=== PATIENT | male | born 1990 | race Caucasian/White ===

== ENCOUNTER → 2018-05-15 12:18 | Outpatient (CLI) | payer OTHER, SELFPAY ==
[2018-05-15 13:44] LABS: Add Manual Diff / Slide Review NO; Basophils Percent Auto 0.4 % (0-2); Hematocrit 47.7 % (41-53); Hemoglobin 16.3 g/dL (13.5-17.5); Lymphocytes Percent Auto 33.4 % (25-40); Mean Corpuscular HGB Conc 34.1 % (30-36); Mean Corpuscular Hemoglobin 30.3 PG (26-34); Mean Corpuscular Volume 88.8 fL (80-100); Monocytes Percent Auto 7.3 % (3-14); Neutrophils Absolute Auto 4300 /uL (3000-5900); Neutrophils Percent Auto 55.9 % (50-75); Platelet Count 237 X10^3/uL (150-400); Red Blood Cell Count 5.38 X10^6/uL (4.5-5.9); Red Cell Distribution Width 12.7 % (11.6-14.8); White Blood Cell Count 7.6 X10^3/uL (4.5-11.0)
[2018-05-15 14:05] LABS: Alanine Aminotransferase 35 IU/L (21-72); Albumin 4.5 g/dL (3.5-5.0); Albumin Globulin Ratio 1.5 (1.0-2.8); Alkaline Phosphatase 49 U/L (38-126); Aspartate Aminotransferase 27 IU/L (17-59); BUN Creatinine Ratio 16.3 (6-22); Bilirubin Total 1.7 mg/dL (0.2-1.3); Blood Urea Nitrogen 13 mg/dL (9-20); Carbon Dioxide 30 mmol/L (22-32); Chloride 102 mmol/L (98-107); Estimated Glomerular Filt Rate > 60.0 mL/min (>60); Glucose 85 mg/dL (70-100); HEMOLYSIS < 15 (0-50); Potassium 4.2 mmol/L (3.4-5.1); Sodium 141 mmol/L (137-145); Total Protein 7.5 g/dL (6.3-8.2)
[2018-05-15 14:37] LABS: Thyroid Stimulating Hormone 1.29 uIU/mL (0.47-4.68)
[2018-05-15 17:07] LABS: Hep C Virus Ab w/Reflex Quant NEGATIVE s/c (NEGATIVE)
== END ==
PROVIDERS: PCP Family Medicine; Visit Provider Physician Assistant
DX: L43.8 Other lichen planus (principal)
CPT/HCPCS: 36415; 80053; 84443; 85025; 86803

== ENCOUNTER 2018-06-17 12:36 | Emergency (ER) | payer OTHER, SELFPAY ==
--- NOTE | 2018-06-17 12:40 | DI.RAD.S_ITS ---
PROCEDURE: XR HAND RT MIN 3V INDICATIONS: right hand pain after impacting a wall TECHNIQUE: 3 views of the hand(s) acquired. COMPARISON: [facility], BILLY, FINGERS 3VW (RT), 01/27/2014, 2:56 PM. [facility], BILLY, XR WRIST RT MIN 3V, 06/17/2018, 12:18. FINDINGS: Bones: In this patient with the given history, scrutiny is given to the 5th metacarpal. No fractures are seen at this site. No fractures or dislocations are seen elsewhere. Carpal bones are normally aligned. No suspicious bony lesions. Soft tissues: No suspicious soft tissue calcifications. IMPRESSION: No fractures are seen by plain film. If there is focal tenderness, or other clinical concern for a fracture not seen on these images in this patient with a given history of trauma, please consider a dedicated CT or a short-term followup plain film series (in 1-2 weeks) for further evaluation. Dictated by: Danial Barahona M.D. on 06/17/2018 at 13:06 Approved by: Danial Barahona M.D. on 06/17/2018 at 13:07
--- NOTE | 2018-06-17 12:41 | DI.RAD.S_ITS ---
PROCEDURE: XR WRIST RT MIN 3V INDICATIONS: right wrist pain after impacting a wall TECHNIQUE: 4 views of the wrist were acquired. COMPARISON: [facility], BILLY, XR HAND RT MIN 3V, [facility]2018, 12:18[facility], 2:56 PM. FINDINGS: Bones: No fractures or dislocations. No suspicious bony lesions. Scaphoid view: No navicular fractures are seen. Soft tissues: No suspicious soft tissue calcifications. IMPRESSION: No displaced fractures are seen. If there is snuffbox tenderness (or other clinical suspicion for a fracture not seen on these images) then a repeat examination would be recommended in 10 to 14 days, following splinting. Dictated by: Danial Barahona M.D. on 06/17/2018 at 13:07 Approved by: Danial Barahona M.D. on 06/17/2018 at 13:08
[2018-06-17 12:44] VITALS: BP 116/74; PULSE 99; RESP 15; TEMP 36.4; O2SAT 96; BMI 29.9
--- NOTE | 2018-06-17 13:08 | ED.UPPEXIN ---
HPI - Extremity Injury (Upper) <SHAN Haines - Last Filed: 06/17/18 21:43> General Chief Complaint: Extremity Injury, Upper Stated Complaint: 'hand is broken' Time Seen by Provider: 06/17/18 13:34 Source: patient Mode of arrival: ambulatory Limitations: no limitations History of Present Illness HPI narrative: 27-year-old healthy male nonsmoker here for complaint of pain to his right hand and wrist after hitting a wall last night. He states pain is mostly over the MCP joint of the 5th digit. Pain radiates to the right ulnar aspect of the wrist. Increased pain with palpation and movement of the area. He reports having some slight swelling. He denies any other injuries or concerns. Related Data Home Medications Medication Instructions Recorded Confirmed prednisone 40 mg PO DAILY 06/17/18 06/17/18 Allergies Allergy/AdvReac Type Severity Reaction Status Date / Time No Known Drug Allergies Allergy Verified 06/17/18 12:44 Review of Systems <SHAN Haines - Last Filed: 06/17/18 21:43> Constitutional Denies chills, Denies fever(s), Denies lethargy and Denies weakness Eyes Denies change in vision, Denies eye discharge, Denies irritation and Denies loss of vision ENT Ears, Nose, Mouth, and Throat: Denies change in voice, Denies neck pain and Denies sore throat Cardiovascular Denies chest pain, Denies irregular heart rhythm, Denies lightheadedness, Denies palpitations, Denies dyspnea, Denies dyspnea on exertion and Denies orthopnea Respiratory Denies cough, Denies dyspnea, Denies dyspnea on exertion and Denies wheezing Gastrointestinal Gastrointestinal: Denies abdominal pain, Denies change in bowel habits, Denies diarrhea, Denies nausea and Denies vomiting Genitourinary Denies hematuria, Denies flank pain, Denies urinary incontinence and Denies urinary urgency Musculoskeletal Denies neck pain Comments: Right wrist and hand pain Integumentary/Breasts Denies pruritus, Denies erythema, Denies rash and Denies wounds Neurologic Denies confusion, Denies loss of vision and Denies weakness Psychiatric Denies anxiety, Denies confusion, Denies depression, Denies homicidal ideation and Denies suicidal ideation Endocrine Denies palpitations Hematologic/Lymphatic Denies easy bruising Allergic/Immunologic Denies wheezing Exam <SHAN Haines - Last Filed: 06/17/18 21:43> Initial Vital Signs Initial Vital Signs: Vital Signs Temperature 97.6 F 06/17/18 12:44 Pulse Rate 99 H 06/17/18 12:44 Respiratory Rate 15 06/17/18 12:44 Blood Pressure 116/74 06/17/18 12:44 Pulse Oximetry 96 06/17/18 12:44 Const General: cooperative and well developed Nutritional Appearance: well nourished Orientation: alert, awake, oriented x3 and not confused HENMI Mouth: oral mucosae normal and oropharynx normal Eyes Conjunctivae: conjunctivae normal Sclera: sclerae normal Pupils: PERRL EOM: EOM intact bilaterally Resp Effort & Inspection: normal respiratory effort, able to speak in complete sentences, no respiratory distress and no use of accessory muscles Auscultation: clear to auscultation bilaterally, no rales, no rhonchi and no wheezes Cardio Rate: regular rate Rhythm: regular rhythm Heart Sounds: no click, no gallops, no murmurs and no rubs Pulses: normal peripheral pulses Skin General: no rashes or lesions noted, No jaundice and No petechiae Neuro General: alert, oriented x3, gait normal and no focal motor deficits Speech: speech normal Extrem Other: Right hand with superficial abrasions to the MCPs of the 4th and 5th metacarpals. Slight swelling to the area. Slight ecchymosis. No deformities. Full range of motion. Distal sensation is intact. Distal cap refill less than 2 sec. No snuffbox tenderness. <Ej Sotelo DO - Last Filed: 06/20/18 08:43> Initial Vital Signs Initial Vital Signs: Vital Signs Temperature 97.6 F 06/17/18 12:44 Pulse Rate 99 H 06/17/18 12:44 Respiratory Rate 15 06/17/18 12:44 Blood Pressure 116/74 06/17/18 12:44 Pulse Oximetry 96 06/17/18 12:44 Course <SHAN Haines - Last Filed: 06/17/18 21:43> Orders Ordered: Discontinued Medications Ibuprofen (Advil) 800 mg PO NOW ONE Stop: 06/17/18 13:20 Last Admin: 06/17/18 13:24 Dose: 800 mg Vital Signs - 8 hr 06/17/18 13:44 Pulse Rate 95 H Respiratory Rate 16 Blood Pressure 128/83 Pulse Oximetry 97 <Ej Sotelo DO - Last Filed: 06/20/18 08:43> Orders Ordered: Discontinued Medications Ibuprofen (Advil) 800 mg PO NOW ONE Stop: 06/17/18 13:20 Last Admin: 06/17/18 13:24 Dose: 800 mg Vital Signs - 8 hr 06/17/18 13:44 Pulse Rate 95 H Respiratory Rate 16 Blood Pressure 128/83 Pulse Oximetry 97 MDM - Extremity Injury (Upper) <SHAN Haines - Last Filed: 06/17/18 21:43> Imaging Data Right wrist: Radiologist's impression: [address] [address] XRay Report Signed Patient: Trevor Joyner RMR#: [id number] : 1990Acct:[id number] Age/Sex: 27 / MDate of Service: 06/17/18 Loc: ED Accession Number: [id number] Procedure: XR wrist RT min 3V Ordering Provider: Jatin Candelario PROCEDURE: XR WRIST RT MIN 3V INDICATIONS: right wrist pain after impacting a wall TECHNIQUE: 4 views of the wrist were acquired. [facility] 01[facility]/2014, 2:56 PM. FINDINGS: Bones: No fractures or dislocations. No suspicious bony lesions. Scaphoid view: No navicular fractures are seen. Soft tissues: No suspicious soft tissue calcifications. IMPRESSION: No displaced fractures are seen. If there is snuffbox tenderness (or other clinical suspicion for a fracture not seen on these images) then a repeat examination would be recommended in 10 to 14 days, following splinting. Dictated by: Danial Barahona M.D. on 06/17/2018 at 13:07 Approved by: Danial Barahona M.D. on 06/17/2018 at 13:08 Right hand : Radiologist's impression: [address] [place] [id number] XRay Report Signed Patient: Trevor Joyner RMR#: [id number] : 1990Acct:[id number] Age/Sex: 27 / MDate of Service: 06/17/18 Loc: ED Accession Number: [id number] Procedure: XR hand RT min 3V Ordering Provider: Jatin Candelario PROCEDURE: XR HAND RT MIN 3V INDICATIONS: right hand pain after impacting a wall TECHNIQUE: 3 views of the hand(s) acquired. COMPARISON: [facility], CR, FINGERS 3VW (RT), 01/27/2014, 2:56 PM. [facility], , XR WRIST RT MIN 3V, 06/17/2018, 12:18. FINDINGS: Bones: In this patient with the given history, scrutiny is given to the 5th metacarpal. No fractures are seen at this site. No fractures or dislocations are seen elsewhere. Carpal bones are normally aligned. No suspicious bony lesions. Soft tissues: No suspicious soft tissue calcifications. IMPRESSION: No fractures are seen by plain film. If there is focal tenderness, or other clinical concern for a fracture not seen on these images in this patient with a given history of trauma, please consider a dedicated CT or a short-term followup plain film series (in 1-2 weeks) for further evaluation. Dictated by: Danial Barahona M.D. on 06/17/2018 at 13:06 Approved by: Danial Barahona M.D. on 06/17/2018 at 13:07 [facility] Narrative Medical decision making narrative: X-ray the right wrist and right hand were obtained and were negative for any acute fractures. Signs and symptoms presents as contusion to the right hand and right wrist. [id number] Tylenol or Motrin as needed for any discomfort. Ice and elevation help with any swelling. Follow up with primary care provider in 1 week for re-evaluation. If continued pain recommend repeat films to rule out occult fracture. For any worsening symptoms return to the emergency room. Discharge Plan Departure Patient Disposition: Home Clinical Impression: Contusion of hand, right Discharge Date/Time: 06/17/18 13:45 Interventions: ED Discharge Assessment Last Done: 06/17/18 13:44 Instructions: Contusion Activity Restrictions/Additional Instructions: X-rays of the right wrist and right hand were obtained and were negative for fracture. Signs and symptoms presents as contusion to the right hand/wrist. Use [id number] ibuprofen as needed for any discomfort. Ice and elevation help with any swelling follow up with her primary care provider in 1 week for re-evaluation and if still painful recommend repeat films to rule out occult fracture. For any worsening symptoms return to the emergency room. Prescriptions: No Action prednisone 20 mg tablet 40 mg PO DAILY RF: 0 Referrals: Rosenda Jean MD [Primary Care Provider] - <Ej Sotelo DO - Last Filed: 06/20/18 08:43> Cosign ED Attending Ercikature Attestation: I was immediately available in the department for consultation. Documentation has been reviewed. I agree with assessment and plan.
[2018-06-17] MEDS: IBUPROFEN 400 MG TABLET 800 MG PO (13:24)
--- NOTE | 2018-06-17 13:32 | ED_ITS ---
HPI - Extremity Injury (Upper) <SHAN Haines - Last Filed: 06/17/18 21:43> General Chief Complaint: Extremity Injury, Upper Stated Complaint: 'hand is broken' Time Seen by Provider: 06/17/18 13:34 Source: patient Mode of arrival: ambulatory Limitations: no limitations History of Present Illness HPI narrative: 27-year-old healthy male nonsmoker here for complaint of pain to his right hand and wrist after hitting a wall last night. He states pain is mostly over the MCP joint of the 5th digit. Pain radiates to the right ulnar aspect of the wrist. Increased pain with palpation and movement of the area. He reports having some slight swelling. He denies any other injuries or concerns. Related Data Home Medications Medication Instructions Recorded Confirmed prednisone 40 mg PO DAILY 06/17/18 06/17/18 Allergies Allergy/AdvReac Type Severity Reaction Status Date / Time No Known Drug Allergies Allergy Verified 06/17/18 12:44 Review of Systems <SHAN Haines - Last Filed: 06/17/18 21:43> Constitutional Denies chills, Denies fever(s), Denies lethargy and Denies weakness Eyes Denies change in vision, Denies eye discharge, Denies irritation and Denies loss of vision ENT Ears, Nose, Mouth, and Throat: Denies change in voice, Denies neck pain and Denies sore throat Cardiovascular Denies chest pain, Denies irregular heart rhythm, Denies lightheadedness, Denies palpitations, Denies dyspnea, Denies dyspnea on exertion and Denies orthopnea Respiratory Denies cough, Denies dyspnea, Denies dyspnea on exertion and Denies wheezing Gastrointestinal Gastrointestinal: Denies abdominal pain, Denies change in bowel habits, Denies diarrhea, Denies nausea and Denies vomiting Genitourinary Denies hematuria, Denies flank pain, Denies urinary incontinence and Denies urinary urgency Musculoskeletal Denies neck pain Comments: Right wrist and hand pain Integumentary/Breasts Denies pruritus, Denies erythema, Denies rash and Denies wounds Neurologic Denies confusion, Denies loss of vision and Denies weakness Psychiatric Denies anxiety, Denies confusion, Denies depression, Denies homicidal ideation and Denies suicidal ideation Endocrine Denies palpitations Hematologic/Lymphatic Denies easy bruising Allergic/Immunologic Denies wheezing Exam <SHAN Haines - Last Filed: 06/17/18 21:43> Initial Vital Signs Initial Vital Signs: Vital Signs Temperature 97.6 F 06/17/18 12:44 Pulse Rate 99 H 06/17/18 12:44 Respiratory Rate 15 06/17/18 12:44 Blood Pressure 116/74 06/17/18 12:44 Pulse Oximetry 96 06/17/18 12:44 Const General: cooperative and well developed Nutritional Appearance: well nourished Orientation: alert, awake, oriented x3 and not confused HENME Mouth: oral mucosae normal and oropharynx normal Eyes Conjunctivae: conjunctivae normal Sclera: sclerae normal Pupils: PERRL EOM: EOM intact bilaterally Resp Effort & Inspection: normal respiratory effort, able to speak in complete sentences, no respiratory distress and no use of accessory muscles Auscultation: clear to auscultation bilaterally, no rales, no rhonchi and no wheezes Cardio Rate: regular rate Rhythm: regular rhythm Heart Sounds: no click, no gallops, no murmurs and no rubs Pulses: normal peripheral pulses Skin General: no rashes or lesions noted, No jaundice and No petechiae Neuro General: alert, oriented x3, gait normal and no focal motor deficits Speech: speech normal Extrem Other: Right hand with superficial abrasions to the MCPs of the 4th and 5th metacarpals. Slight swelling to the area. Slight ecchymosis. No deformities. Full range of motion. Distal sensation is intact. Distal cap refill less than 2 sec. No snuffbox tenderness. <Ej Sotelo DO - Last Filed: 06/20/18 08:43> Initial Vital Signs Initial Vital Signs: Vital Signs Temperature 97.6 F 06/17/18 12:44 Pulse Rate 99 H 06/17/18 12:44 Respiratory Rate 15 06/17/18 12:44 Blood Pressure 116/74 06/17/18 12:44 Pulse Oximetry 96 06/17/18 12:44 Course <SHAN Haines - Last Filed: 06/17/18 21:43> Orders Ordered: Discontinued Medications Ibuprofen (Advil) 800 mg PO NOW ONE Stop: 06/17/18 13:20 Last Admin: 06/17/18 13:24 Dose: 800 mg Vital Signs - 8 hr 06/17/18 13:44 Pulse Rate 95 H Respiratory Rate 16 Blood Pressure 128/83 Pulse Oximetry 97 <Ej Sotelo DO - Last Filed: 06/20/18 08:43> Orders Ordered: Discontinued Medications Ibuprofen (Advil) 800 mg PO NOW ONE Stop: 06/17/18 13:20 Last Admin: 06/17/18 13:24 Dose: 800 mg Vital Signs - 8 hr 06/17/18 13:44 Pulse Rate 95 H Respiratory Rate 16 Blood Pressure 128/83 Pulse Oximetry 97 MDM - Extremity Injury (Upper) <SHAN Haines - Last Filed: 06/17/18 21:43> Imaging Data Right wrist: Radiologist's impression: [address] [address] XRay Report Signed Patient: Trevor Joyner RMR#: [id number] : 1990Acct:[id number] Age/Sex: 27 / MDate of Service: 06/17/18 Loc: ED Accession Number: [id number] Procedure: XR wrist RT min 3V Ordering Provider: Jatin Candelario PROCEDURE: XR WRIST RT MIN 3V INDICATIONS: right wrist pain after impacting a wall TECHNIQUE: 4 views of the wrist were acquired. [facility]2014, 2:56 PM. FINDINGS: Bones: No fractures or dislocations. No suspicious bony lesions. Scaphoid view: No navicular fractures are seen. Soft tissues: No suspicious soft tissue calcifications. IMPRESSION: No displaced fractures are seen. If there is snuffbox tenderness (or other clinical suspicion for a fracture not seen on these images) then a repeat examination would be recommended in 10 to 14 days, following splinting. Dictated by: Dainal Barahona M.D. on 06/17/2018 at 13:07 Approved by: Danial aBrahona M.D. on 06/17/2018 at 13:08 Right hand : Radiologist's impression: [address] [place] [id number] XRay Report Signed Patient: Trevor Joyner RMR#: [id number] : 1990Acct:[id number] Age/Sex: 27 / MDate of Service: 06/17/18 Loc: ED Accession Number: [id number] Procedure: XR hand RT min 3V Ordering Provider: Jatin Candelario PROCEDURE: XR HAND RT MIN 3V INDICATIONS: right hand pain after impacting a wall TECHNIQUE: 3 views of the hand(s) acquired. COMPARISON: [facility], CR, FINGERS 3VW (RT), 01/27/2014, 2:[address] [facility], , XR WRIST RT MIN 3V, 06/17/2018, 12:18. FINDINGS: Bones: In this patient with the given history, scrutiny is given to the 5th metacarpal. No fractures are seen at this site. No fractures or dislocations are seen elsewhere. Carpal bones are normally aligned. No suspicious bony lesions. Soft tissues: No suspicious soft tissue calcifications. IMPRESSION: No fractures are seen by plain film. If there is focal tenderness, or other clinical concern for a fracture not seen on these images in this patient with a given history of trauma, please consider a dedicated CT or a short-term followup plain film series (in 1-2 weeks) for further evaluation. Dictated by: Danial Barahona M.D. on 06/17/2018 at 13:06 Approved by: Danial Barahona M.D. on 06/17/2018 at 13:07 [facility] Narrative Medical decision making narrative: X-ray the right wrist and right hand were obtained and were negative for any acute fractures. Signs and symptoms presents as contusion to the right hand and right wrist. Waer-bjr-eptgkel Tylenol or Motrin as needed for any discomfort. Ice and elevation help with any swelling. Follow up with primary care provider in 1 week for re- evaluation. If continued pain recommend repeat films to rule out occult fracture. For any worsening symptoms return to the emergency room. Discharge Plan Departure Patient Disposition: Home Clinical Impression: Contusion of hand, right Discharge Date/Time: 06/17/18 13:45 Interventions: ED Discharge Assessment Last Done: 06/17/18 13:44 Instructions: Contusion Activity Restrictions/Additional Instructions: X-rays of the right wrist and right hand were obtained and were negative for fracture. Signs and symptoms presents as contusion to the right hand/wrist. Use xjlt-hud-ofitrge ibuprofen as needed for any discomfort. Ice and elevation help with any swelling follow up with her primary care provider in 1 week for re-evaluation and if still painful recommend repeat films to rule out occult fracture. For any worsening symptoms return to the emergency room. Prescriptions: No Action prednisone 20 mg tablet 40 mg PO DAILY RF: 0 Referrals: Rosenda Jean MD [Primary Care Provider] - <Ej Sotelo DO - Last Filed: 06/20/18 08:43> Cosign ED Attending Erickature Attestation: I was immediately available in the department for consultation. Documentation has been reviewed. I agree with assessment and plan.
[2018-06-17 13:44] VITALS: BP 128/83; PULSE 95; RESP 16; O2SAT 97
== END 2018-06-17 13:45 | disposition home or self-care (01) ==
PROVIDERS: Emergency Provider Nurse Practitioner Family; PCP Family Medicine
DX: S60.221A Contusion of right hand, initial encounter (principal); W22.8XXA Striking against or struck by other objects, initial encounter
CPT/HCPCS: 73110; 73130; 99282; 99283

== ENCOUNTER → 2018-11-22 11:30 | Outpatient (CLI) | payer OTHER, SELFPAY ==
--- NOTE | 2018-11-22 11:32 | DI.RAD.S_ITS ---
PROCEDURE: XR FOOT LT MIN 3V INDICATIONS: pain in L first toe TECHNIQUE: 3 views of the foot were acquired. COMPARISON: None. FINDINGS: Bones: No fractures or dislocations. No suspicious bony lesions. Soft tissues: No tibiotalar joint effusion. Achilles tendon appears normal. IMPRESSION: No fracture. No osseous lesion. If symptoms and/or clinical suspicion for pathology persists, further assessment with repeat radiographs (7-10 days) or advanced imaging (e.g. CT, MRI or bone scan) may be helpful. Dictated by: Karol Painting MD, PhD on 11/22/2018 at 11:54 Approved by: Karol Painting MD, PhD on 11/22/2018 at 11:55
== END ==
PROVIDERS: PCP Family Medicine; Visit Provider Physician Assistant
DX: M79.675 Pain in left toe(s) (principal)
CPT/HCPCS: 73630

== ENCOUNTER → 2019-09-08 10:47 | Outpatient (CLI) | payer OTHER, SELFPAY | PROVIDERS: PCP Family Medicine; Visit Provider Physician Assistant | DX: L02.91 Cutaneous abscess, unspecified (principal) | CPT/HCPCS: 87070; 87075; 87077; 87147; 87186; 87205 ==

== ENCOUNTER → 2020-09-06 13:05 | Outpatient (CLI) | payer OTHER, SELFPAY ==
[2020-09-06 14:21] LABS: COVID19 -Nasal RAPID Negative (Negative)
== END ==
PROVIDERS: PCP Family Medicine; Visit Provider Physician Assistant
DX: Z11.59 Encounter for screening for other viral diseases (principal)
CPT/HCPCS: 87635

== ENCOUNTER 2021-06-20 10:47 | Emergency (ER) | payer OTHER, SELFPAY ==
[2021-06-20 11:04] VITALS: BP 135/83; PULSE 74; RESP 14; TEMP 36.9; O2SAT 99; BMI 31.1
[2021-06-20 11:44] LABS: Add Manual Diff / Slide Review NO; Basophils Absolute Auto 0 /uL (0-100); Basophils Percent Auto 0.6 % (0-2); Eosinophils Absolute Auto 100 /uL (0-450); Eosinophils Percent Auto 1.3 % (2-4); Hemoglobin 15.7 g/dL (13.5-17.5); Lymphocytes Absolute Auto 2000 /uL (1100-4500); Lymphocytes Percent Auto 28.7 % (25-40); Mean Corpuscular HGB Conc 33.5 % (30-36); Mean Corpuscular Hemoglobin 29.4 PG (26-34); Mean Corpuscular Volume 87.6 fL (80-100); Monocytes Absolute Auto 500 /uL (0-900); Monocytes Percent Auto 7.7 % (3-14); Neutrophils Absolute Auto 4200 /uL (1500-7000); Neutrophils Percent Auto 61.7 % (50-75); Platelet Count 236 X10^3/uL (150-400); Red Blood Cell Count 5.36 X10^6/uL (4.5-5.9); White Blood Cell Count 6.8 X10^3/uL (4.5-11.0)
--- NOTE | 2021-06-20 11:47 | DI.CT.S_ITS ---
PROCEDURE: CT ABDOMEN PELVIS W CON INDICATIONS: Left-sided abdominal pain TECHNIQUE: After the administration of oral and IV contrast, axial sections were acquired from the lung bases to the pubic symphysis. Coronal and sagittal reformats were performed. For radiation dose reduction, the following was used: automated exposure control, adjustment of mA and/or kV according to patient size. COMPARISON: None. FINDINGS: Image quality: Excellent. Lung bases: Unremarkable. Heart: No significant findings. ABDOMEN: Liver: Unremarkable. Gallbladder: Unremarkable. Biliary ducts: Unremarkable. Pancreas: Unremarkable. Spleen: Unremarkable. Adrenal Glands: Unremarkable. Kidneys and Ureters: Unremarkable. Stomach and Bowel: Within the distal descending colon, there is moderate wall thickening with surrounding inflammatory change. At least 1 flamed appearing diverticulum can be seen. No focal fluid collections are seen to suggest abscess. The stomach, small bowel loops, and colon are otherwise unremarkable. A normal appendix is incidentally noted. Peritoneum: No abnormal intraperitoneal fluid. No free air. Ventral Wall: No hernia. Abdominal Nodes: No retroperitoneal or mesenteric adenopathy by size criteria. Vessels: Aorta and inferior vena cava are normal in size. PELVIS: Pelvic Organs: Unremarkable. Bladder: Unremarkable. Pelvic Nodes: No enlarged lymph nodes. Miscellaneous: No inguinal hernias are seen. Bones: Unremarkable. IMPRESSION: These imaging findings are most compatible with focal diverticulitis of the descending colon No findings of perforation or abscess are seen. Dictated by: Danial Barahona M.D. on 06/20/2021 at 11:58 Approved by: Danial Barahona M.D. on 06/20/2021 at 11:59
--- NOTE | 2021-06-20 11:47 | ED_ITS ---
HPI - General Adult General Chief complaint: Abdominal Pain Stated complaint: abdominal pain Time Seen by Provider: 06/20/21 11:39 Source: patient Mode of arrival: Ambulatory Limitations: no limitations History of Present Illness HPI narrative: Patient is a 30-year-old otherwise healthy male here for evaluation of left-sided abdominal discomfort. He states that has been going on for the past couple days. Does not change with bowel movements. Does not change with urination. No testicular pain. No rashes. No nausea vomiting. He states that it does hurt when he touches the area and especially when he bends forward. Has not tried anything for the symptoms prior to arrival. No fevers. No prior abdominal surgeries. Has never had anything like this in the past. Related Data Previous Rx's Medication Instructions Recorded ciprofloxacin HCl 500 mg tablet 500 mg PO BID 10 Days #20 tab 06/20/21 metronidazole 500 mg tablet 500 mg PO TID 10 Days #30 tab 06/20/21 (Flagyl) Allergies Allergy/AdvReac Type Severity Reaction Status Date / Time No Known Drug Allergies Allergy Verified 06/20/21 11:08 Review of Systems Constitutional Constitutional: Reports system reviewed and no additional complaints, except as documented Cardiovascular Cardiovascular: Reports system reviewed and no additional complaints, except as documented Respiratory Respiratory: Reports system reviewed and no additional complaints, except as doc umented Gastrointestinal Gastrointestinal: Reports as per HPI and Reports system reviewed and no additional complaints, except as documented Genitourinary Genitourinary: Reports system reviewed and no additional complaints, except as documented Musculoskeletal Musculoskeletal: Reports system reviewed and no additional complaints, except as documented Integumentary/Breasts Skin/Breast: Reports system reviewed and no additional complaints, except as documented Neurologic Neurologic: Reports system reviewed and no additional complaints, except as documented Hematologic/Lymphatic On Anticoagulants: No Allergic/Immunologic Allergic/Immunologic: Reports system reviewed and no additional complaints, except as documented Patient History Medical History Vomiting Social History Smoking Status: Never smoker Smoking Status: Never smoker alcohol intake frequency: 0-2 drinks per day Substance Use Type: does not use Exam Initial Vital Signs Initial Vital Signs: Vital Signs Temperature 98.4 F 06/20/21 11:04 Pulse Rate 74 06/20/21 11:04 Respiratory Rate 14 06/20/21 11:04 Blood Pressure 135/83 06/20/21 11:04 Pulse Oximetry 99 06/20/21 11:04 Const General: cooperative, comfortable and well developed [facility] Head: normal to inspection and normocephalic Resp Effort & Inspection: normal respiratory effort Auscultation: clear to auscultation bilaterally Cardio Rate: regular rate Rhythm: regular rhythm GI Inspection: normal to inspection Palpation: soft, No firm and tender (Left-sided abdomen) Back/Spine/Pelvis Back: No CVA tenderness Skin General: no rashes or lesions noted Neuro General: patient alert, patient awake, patient oriented x3 and moves all extremities Speech: speech normal Gait: normal gait Extrem General: normal to inspection and capillary refill normal Psych Appearance: grossly normal and well kempt Course Orders Ordered: ED Orders 06/20/21 11:35 Complete Blood Count AUTO DIFF Stat Comprehensive Metabolic Panel Stat Lipase Stat 06/20/21 11:47 CT abdomen pelvis w con Stat Discontinued Medications Sodium Chloride (Normal Saline 0.9%) 1,000 mls @ 1,000 mls/hr IV BOLUS ONE Stop: 06/20/21 12:46 Last Admin: 06/20/21 12:33 Dose: 1,000 mls/hr Documented by: HELADIO Vital Signs Vital signs: Vital Signs - 8 hr 06/20/21 11:04 06/20/21 13:31 Temperature 98.4 F Pulse Rate 74 70 Respiratory Rate 14 16 Blood Pressure 135/83 135/74 Pulse Oximetry 99 99 Medical Decision Making Lab Data Lab results reviewed: Yes I reviewed the patient's lab results. Result diagrams: 06/20/21 11:35 06/20/21 11:35 Labs: Lab Results 06/20/21 06/20/21 Range/Units 11:35 11:35 WBC 6.8 (4.5-11.0) X10^3/uL RBC 5.36 (4.5-5.9) X10^6/uL Hgb 15.7 (13.5-17.5) g/dL Hct 47.0 (41-53) % MCV 87.6 (80-100) fL MCH 29.4 (26-34) PG MCHC 33.5 (30-36) % RDW 13.0 (11.6-14.8) % Plt Count 236 (150-400) X10^3/uL Neut % (Auto) 61.7 (50-75) % Lymph % (Auto) 28.7 (25-40) % [place] % (Auto) 7.7 (3-14) % Eos % (Auto) 1.3 L (2-4) % Baso % (Auto) 0.6 (0-2) % Neut # (Auto) 4200 (1605-9588) /uL Lymph # (Auto) 2000 (0448-1356) /uL [place] # (Auto) 500 (0-900) /uL Eos # (Auto) 100 (0-450) /uL Baso # (Auto) 0 (0-100) /uL Sodium 138 (137-145) mmol/L Potassium 4.2 (3.4-5.1) mmol/L Chloride 104 (98-107) mmol/L Carbon Dioxide 31 (22-32) mmol/L BUN 11 (9-20) mg/dL Creatinine 0.67 (0.66-1.25) mg/dL Estimated GFR > 60.0 (>60) mL/min BUN/Creatinine Ratio 16.4 (6-22) Glucose 100 (70-100) mg/dL Calcium 9.7 (8.4-10.2) mg/dL Total Bilirubin 1.1 (0.2-1.3) mg/dL AST 27 (17-59) IU/L ALT 23 (<50) IU/L Alkaline Phosphatase 55 (38-126) U/L Total Protein 7.7 (6.3-8.2) g/dL Albumin 4.6 (3.5-5.0) g/dL Globulin 3.1 (1.7-4.1) g/dL Albumin/Globulin Ratio 1.5 (1.0-2.8) Lipase 34 (23-300) U/L Urine Dip Bedside Urine Glucose Negative Bedside Urine Bilirubin - Negative Bedside Urine Ketone - Negative Urine Specific [place] 1.030 Bedside Urine Occult Blood - Negative Bedside Urine pH 6.0 Bedside Urine Protein - Negative Bedside Urine Urobilinogen - Negative Bedside Urine Nitrite - Negative Bedside Urine Leukocytes - Negative Esterase Point of care testing: Urine Dip Bedside Urine Glucose Negative Bedside Urine Bilirubin - Negative Bedside Urine Ketone - Negative Urine Specific [place] 1.030 Bedside Urine Occult Blood - Negative Bedside Urine pH 6.0 Bedside Urine Protein - Negative Bedside Urine Urobilinogen - Negative Bedside Urine Nitrite - Negative Bedside Urine Leukocytes - Negative Esterase Imaging Data CT scan - abdomen/pelvis: Radiologist's Impression: [address] [address] [address] Scan Report Signed Patient: Trevor Joyner MR#: [id number] : 1990 Acct:[id number] Age/Sex: 30 / M Date of Service: 06/20/21 Loc: ED Accession Number: [id number] ?? Procedure: CT abdomen pelvis w con Ordering Provider: Adrian Lyn D.O. PROCEDURE:? CT ABDOMEN PELVIS W CON ? INDICATIONS:? Left-sided abdominal pain ? TECHNIQUE:? After the administration of oral and IV contrast, axial sections were acquired from the lung bases to the pubic symphysis.? Coronal and sagittal reformats were performed.? For radiation dose reduction, the following was used:? automated exposure control, adjustment of mA and/or kV according to patient size. ? COMPARISON:? None. ? FINDINGS:? Image quality:? Excellent.? ? Lung bases:? Unremarkable.? ? Heart:? No significant findings. ? ? ABDOMEN: Liver:? Unremarkable.? ? Gallbladder:? Unremarkable.? ? Biliary ducts:? Unremarkable.? ? Pancreas:? Unremarkable.? ? Spleen:? Unremarkable.? ? Adrenal Glands:? Unremarkable.? ? Kidneys and Ureters:? Unremarkable.? ? ? Stomach and Bowel:? Within the distal descending colon, there is moderate wall thickening with surrounding inflammatory change.? At least 1 flamed appearing diverticulum can be seen.? No focal fluid collections are seen to suggest abscess.? The stomach, small bowel loops, and colon are otherwise unremarkable.? A normal appendix is incidentally noted.? Peritoneum:? No abnormal intraperitoneal fluid.? No free air.? ? Ventral Wall: ? No hernia.? Abdominal Nodes:? No retroperitoneal or mesenteric adenopathy by size criteria.? Vessels:? Aorta and inferior vena cava are normal in size.? ? PELVIS: Pelvic Organs:? Unremarkable.? ? Bladder:? Unremarkable.? ? Pelvic Nodes: No enlarged lymph nodes.? Miscellaneous: No inguinal hernias are seen. ? ? ? Bones:? Unremarkable.? IMPRESSION:? ? These imaging findings are most compatible with focal diverticulitis of the descending colon ? No findings of perforation or abscess are seen. ? ? Dictated by: Danial Barahona M.D. on 06/20/2021 at 11:58 ? ? Approved by: Danial Barahona M.D. on 06/20/2021 at 11:59?? MDM Narrative Medical decision making narrative: Patient has a relatively benign exam with reassuring labs and vital signs. The CT scan was ordered because of a higher suspicion for diverticulitis despite his age. This was confirmed by the CT scan. There is no signs of any abscess or perforation. Plan will be is to start him on antibiotics. They were electronically transmitted to the pharmacy of his choice. He was given return precautions and follow-up instructions. He expressed understanding and agreement. Discharge Plan Departure Patient Disposition: Home Clinical Impression: Diverticulitis Instructions: DI for Diverticulitis Activity Restrictions/Additional Instructions: Your CT scan today is positive for diverticulitis. This does require antibiotics. Please start taking them as directed. Contact your primary doctor for a follow-up. Return to the emergency department for any new or worsening symptoms Prescriptions: New ciprofloxacin HCl 500 mg tablet 500 mg PO BID 10 Days Qty: 20 RF: 0 metronidazole [Flagyl] 500 mg tablet 500 mg PO TID 10 Days Qty: 30 RF: 0 Referrals: Rosenda Jean MD [Primary Care Provider] -
[2021-06-20 12:12] LABS: Alanine Aminotransferase 23 IU/L (<50); Albumin 4.6 g/dL (3.5-5.0); Albumin Globulin Ratio 1.5 (1.0-2.8); Alkaline Phosphatase 55 U/L (38-126); Aspartate Aminotransferase 27 IU/L (17-59); BUN Creatinine Ratio 16.4 (6-22); Bilirubin Total 1.1 mg/dL (0.2-1.3); Blood Urea Nitrogen 11 mg/dL (9-20); Calcium 9.7 mg/dL (8.4-10.2); Carbon Dioxide 31 mmol/L (22-32); Chloride 104 mmol/L (98-107); Estimated Glomerular Filt Rate > 60.0 mL/min (>60); Globulin 3.1 g/dL (1.7-4.1); Glucose 100 mg/dL (70-100); HEMOLYSIS < 15 (0-50); Lipase 34 U/L (23-300); Potassium 4.2 mmol/L (3.4-5.1); Sodium 138 mmol/L (137-145); Total Protein 7.7 g/dL (6.3-8.2)
[2021-06-20] MEDS: SODIUM CHLORIDE 0.9% 1,000 ML 1000 ML IV (12:33)
[2021-06-20 13:31] VITALS: BP 135/74; PULSE 70; RESP 16; O2SAT 99
== END 2021-06-20 13:45 | disposition home or self-care (01) ==
PROVIDERS: Emergency Provider Emergency Medicine; PCP Family Medicine
DX: K57.92 Diverticulitis of intestine, part unspecified, without perforation or abscess without bleeding (principal)
CPT/HCPCS: 36415; 74177; 80053; 81003; 83690; 85025; 96360; 99284; 99285

== ENCOUNTER 2024-03-26 10:53 | Emergency (ER) | payer OTHER, SELFPAY ==
[2024-03-26 11:01] VITALS: BP 150/90; PULSE 63; RESP 14; TEMP 36.7; O2SAT 96; BMI 30.5
[2024-03-26 11:10] VITALS: PULSE 71; O2SAT 98
--- NOTE | 2024-03-26 11:22 | ED.GENADULT ---
HPI - General Adult General Chief complaint: Abdominal Pain Stated complaint: abd pain Time Seen by Provider: 03/26/24 11:07 Source: patient Mode of arrival: Ambulatory History of Present Illness HPI narrative: Patient is a 33-year-old male. History of diverticulitis. Is here for evaluation of left-sided lower abdominal discomfort. His last episode of diverticulitis was a couple years ago. He tolerated the antibiotics without issue. Has had no issues since then until last evening. He had no follow-up after his prior episode of diverticulitis. Symptoms started yesterday afternoon/evening. No vomiting. No fevers. No urinary symptoms. He did have a bowel movement this morning that was nonbloody and did not changes belly pain. He states this feels similar but not exactly like his prior episode of diverticulitis. No chest pain or shortness of breath. Related Data Allergies Allergy/AdvReac Type Severity Reaction Status Date / Time No Known Drug Allergies Allergy Verified 03/26/24 11:01 Review of Systems Review of Systems Narrative: See HPI Patient History Medical History Vomiting Social History Smoking Status: Never smoker Smoking Status: Never smoker alcohol intake frequency: a few times a week Substance Use Type: does not use Exam Initial Vital Signs Initial Vital Signs: Vital Signs Temperature 98.0 F 03/26/24 11:01 Pulse Rate 63 03/26/24 11:01 Respiratory Rate 14 03/26/24 11:01 Blood Pressure 150/90 H 03/26/24 11:01 Pulse Oximetry 96 03/26/24 11:01 Oxygen Delivery Method Room Air 03/26/24 11:01 Const General: cooperative, comfortable and No ill appearing [facility] Head: normal to inspection and normocephalic Resp Effort & Inspection: normal respiratory effort Auscultation: clear to auscultation bilaterally Cardio Rate: regular rate Rhythm: regular rhythm GI Inspection: normal to inspection and non-distended Palpation: soft, No firm, No guarding and tender (Lower abdomen) Skin General: no rashes or lesions noted Neuro General: patient alert and patient awake Course Orders Ordered: ED Orders 03/26/24 11:21 CT abdomen pelvis w con Stat 03/26/24 11:25 Complete Blood Count AUTO DIFF Stat Comprehensive Metabolic Panel Stat Lipase Stat Ondansetron HCl (Ondansetron 4 Mg/2 Ml Inj) 4 mg IV NOW PRN PRN Reason: Nausea And Vomiting Vital Signs Vital signs: Vital Signs - 8 hr 03/26/24 11:01 03/26/24 11:10 03/26/24 11:30 Temperature 98.0 F Pulse Rate 63 71 Respiratory Rate 14 Blood Pressure 150/90 H 138/82 Pulse Oximetry 96 98 Oxygen Delivery Method Room Air 03/26/24 11:30 03/26/24 11:48 03/26/24 11:48 Temperature Pulse Rate 71 72 Respiratory Rate Blood Pressure 143/81 H Pulse Oximetry 96 97 Oxygen Delivery Method 03/26/24 12:00 03/26/24 12:00 Temperature Pulse Rate 63 Respiratory Rate Blood Pressure 123/61 Pulse Oximetry 97 Oxygen Delivery Method Medical Decision Making Lab Data Lab results reviewed: Yes I reviewed the patient's lab results. 03/26/24 11:25 03/26/24 11:25 Labs: Lab Results 03/26/24 Range/Units 11:25 WBC 6.8 (4.5-11.0) X10^3/uL RBC 5.34 (4.5-5.9) X10^6/uL Hgb 15.7 (13.5-17.5) g/dL Hct 46.0 (41-53) % MCV 86.0 (80-100) fL MCH 29.4 (26-34) PG MCHC 34.2 (30-36) % RDW 13.1 (11.6-14.8) % Plt Count 262 (150-400) X10^3/uL Neut % (Auto) 53.6 (50-75) % Lymph % (Auto) 34.5 (25-40) % [place] % (Auto) 8.1 (3-14) % Eos % (Auto) 3.3 (2-4) % Baso % (Auto) 0.5 (0-2) % Neut # (Auto) 3600 (4473-5070) /uL Lymph # (Auto) 2300 (2721-3982) /uL [place] # (Auto) 500 (0-900) /uL Eos # (Auto) 200 (0-450) /uL Baso # (Auto) 0 (0-100) /uL Sodium 137 (137-145) mmol/L Potassium 4.0 (3.4-5.1) mmol/L Chloride 107 (98-107) mmol/L Carbon Dioxide 26 (22-32) mmol/L BUN 13 (9-20) mg/dL Creatinine 0.75 (0.66-1.25) mg/dL Estimated GFR > 60 (>60) mL/min BUN/Creatinine Ratio 17.3 (6-22) Glucose 100 (70-100) mg/dL Calcium 9.4 (8.4-10.2) mg/dL Total Bilirubin 1.7 H (0.2-1.3) mg/dL AST 27 (17-59) IU/L ALT 26 (<50) IU/L Alkaline Phosphatase 55 (38-126) U/L Total Protein 7.7 (6.3-8.2) g/dL Albumin 4.7 (3.5-5.0) g/dL Globulin 3.0 (1.7-4.1) g/dL Albumin/Globulin Ratio 1.6 (1.0-2.8) Lipase 39 (23-300) U/L Urine Dip Bedside Urine Glucose Negative Bedside Urine Bilirubin - Negative Bedside Urine Ketone - Negative Urine Specific [place] 1.010 Bedside Urine Occult Blood - Negative Bedside Urine pH 6.0 Bedside Urine Protein - Negative Bedside Urine Urobilinogen - Negative Bedside Urine Nitrite - Negative Bedside Urine Leukocytes - Negative Esterase Point of care testing: Urine Dip Bedside Urine Glucose Negative Bedside Urine Bilirubin - Negative Bedside Urine Ketone - Negative Urine Specific [place] 1.010 Bedside Urine Occult Blood - Negative Bedside Urine pH 6.0 Bedside Urine Protein - Negative Bedside Urine Urobilinogen - Negative Bedside Urine Nitrite - Negative Bedside Urine Leukocytes - Negative Esterase Imaging Data CT scan - abdomen/pelvis: Radiologist's Impression: PROCEDURE: CT ABDOMEN PELVIS W CON INDICATIONS: LLQ abd pain TECHNIQUE: After the administration of intravenous contrast, axial sections acquired from the lung bases to the pubic symphysis. Coronal and sagittal reformats were performed. For radiation dose reduction, the following was used: automated exposure control, adjustment of mA and/or kV according to patient size. COMPARISON: [facility], CT, CT ABDOMEN PELVIS W CON, 06/20/2021, 12:44. FINDINGS: Image quality: Diagnostic. Lower Chest: No significant findings. ABDOMEN: Liver: No solid mass. Gallbladder: No radiopaque gallstones or wall thickening. Biliary ducts: No biliary dilation. Pancreas: No ductal dilation. Spleen: Size is within normal limits. Adrenal Glands: No adrenal nodules. Kidneys and Ureters: No hydronephrosis. No solid mass. No complex renal cystic lesion which requires follow up. Stomach and Bowel: Normal colonic caliber, without significant wall thickening. Diverticulosis. Currently, there is no CT evidence of acute diverticulitis. Peritoneum: No abnormal intraperitoneal fluid. No free air. Ventral Wall: No significant ventral hernia. Abdominal Nodes: No retroperitoneal or mesenteric adenopathy by size criteria. Vessels: Aorta and inferior vena cava are normal in size. PELVIS: Pelvic Organs: Unremarkable. Bladder: No bladder wall thickening, accounting for underdistention. Pelvic Nodes: No enlarged lymph nodes. Miscellaneous: No inguinal hernias are seen. Bones: No aggressive osseous abnormality. IMPRESSION: Diverticulosis. No definitive CT evidence of recurrent acute diverticulitis. 2. No other acute findings identified. MDM Narrative Medical decision making narrative: CT scan shows diverticulosis without signs of acute diverticulitis. His labs are unremarkable. No other signs of infection. No indication for admission to the hospital. No indication for surgical consultation. Had a discussion with him regarding his symptoms. He will return to the emergency department if his symptoms worsened. He expressed understanding and agreement plan. Discharge Plan Departure Patient Disposition: Home Clinical Impression: Abdominal pain Instructions: DI for Abdominal Pain-Adult Activity Restrictions/Additional Instructions: I do recommend a bland diet for the next couple days that you can advance as tolerated. Return to the emergency department for new or worsening symptoms like we discussed. Referrals: Rosenda Jean MD [Primary Care Provider] - Stand Alone Forms: Patient Portal/API
[2024-03-26 11:30] VITALS: BP 138/82; PULSE 71; O2SAT 96
[2024-03-26 11:42] LABS: Add Manual Diff / Slide Review NO; Basophils Absolute Auto 0 /uL (0-100); Basophils Percent Auto 0.5 % (0-2); Eosinophils Absolute Auto 200 /uL (0-450); Eosinophils Percent Auto 3.3 % (2-4); Hemoglobin 15.7 g/dL (13.5-17.5); Lymphocytes Absolute Auto 2300 /uL (1100-4500); Lymphocytes Percent Auto 34.5 % (25-40); Mean Corpuscular HGB Conc 34.2 % (30-36); Mean Corpuscular Hemoglobin 29.4 PG (26-34); Monocytes Absolute Auto 500 /uL (0-900); Monocytes Percent Auto 8.1 % (3-14); Neutrophils Absolute Auto 3600 /uL (1500-7000); Neutrophils Percent Auto 53.6 % (50-75); Platelet Count 262 X10^3/uL (150-400); Red Blood Cell Count 5.34 X10^6/uL (4.5-5.9); Red Cell Distribution Width 13.1 % (11.6-14.8); White Blood Cell Count 6.8 X10^3/uL (4.5-11.0)
[2024-03-26 11:48] VITALS: BP 143/81; PULSE 72; O2SAT 97
[2024-03-26 11:59] LABS: Alanine Aminotransferase 26 IU/L (<50); Albumin 4.7 g/dL (3.5-5.0); Albumin Globulin Ratio 1.6 (1.0-2.8); Alkaline Phosphatase 55 U/L (38-126); Aspartate Aminotransferase 27 IU/L (17-59); BUN Creatinine Ratio 17.3 (6-22); Bilirubin Total 1.7 mg/dL (0.2-1.3); Blood Urea Nitrogen 13 mg/dL (9-20); Calcium 9.4 mg/dL (8.4-10.2); Carbon Dioxide 26 mmol/L (22-32); Chloride 107 mmol/L (98-107); Estimated Glomerular Filt Rate > 60 mL/min (>60); Glucose 100 mg/dL (70-100); HEMOLYSIS < 15 (0-50); Lipase 39 U/L (23-300); Sodium 137 mmol/L (137-145); Total Protein 7.7 g/dL (6.3-8.2)
[2024-03-26 12:00] VITALS: BP 123/61; PULSE 63; O2SAT 97
[2024-03-26 12:30] VITALS: BP 120/82; PULSE 64; O2SAT 97
== END 2024-03-26 12:59 | disposition home or self-care (01) ==
PROVIDERS: Emergency Provider Emergency Medicine; PCP Family Medicine
DX: R10.32 Left lower quadrant pain (principal)
CPT/HCPCS: 36415; 74177; 80053; 81003; 83690; 85025; 99284; Q9967